=== PATIENT | male | born 1990 | race African-American/Black ===

== ENCOUNTER 2018-12-07 09:54 | Emergency (ER) | payer SELFPAY ==
[~2018-12-07] VITALS: Ht 182.9 cm; Wt 104.5 kg
[2018-12-07] MEDS ORDERED: IBUPROFEN 600MG TABLET PO STA (10:53)
[2018-12-07 13:21] VITALS: BP 127/64
== END 2018-12-07 13:56 | disposition home or self-care (01) ==
LOC: ER 10:02
DX: S92.502A Displaced unspecified fracture of left lesser toe(s), initial encounter for closed fracture (principal); V49.59XA Passenger injured in collision with other motor vehicles in traffic accident, initial encounter; Y93.89 Activity, other specified; Y92.410 Unspecified street and highway as the place of occurrence of the external cause; F17.210 Nicotine dependence, cigarettes, uncomplicated
CPT/HCPCS: 73630; 99283; Z7610